=== PATIENT | male | born 1955 | race Caucasian/White ===

== ENCOUNTER 2024-09-05 10:39 | Emergency (ER) | payer MEDICARE, BC ==
[~2024-09-05] VITALS: Ht 167.6 cm; Wt 107.4 kg
[2024-09-05 10:40] VITALS: TEMP 97.8
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
[2024-09-05 15:45] VITALS: BP 156/112; PULSE 64; O2SAT 98
[2024-09-05 15:46] VITALS: RESP 15
== END 2024-09-05 16:05 | disposition home or self-care (01) ==
LOC: ER 10:40
DX: S30.0XXA Contusion of lower back and pelvis, initial encounter (principal); X58.XXXA Exposure to other specified factors, initial encounter; Y93.89 Activity, other specified; Y92.89 Other specified places as the place of occurrence of the external cause; Y99.8 Other external cause status
CPT/HCPCS: 74176; 99284